=== PATIENT | male | born 1960 | race Caucasian/White ===

== ENCOUNTER 2020-04-06 09:51 | Inpatient (IN) ==
[2020-04-06 10:36] LABS: Basophils # 0.1 10*3/uL (0.0-0.2); Basophils % 0.5 % (0.0-0.8); Eosinophils % 0.4 % (0.00-10.9); Hemoglobin 13.8 GM/DL (14.0-18.0); Immature Granulocytes % 0.3 %; Immature Granulocytes Absolute 0.03 #; Lymphocytes # 1.5 10*3/uL (1.4-4.0); Lymphocytes % 14.6 % (21.2-54.2); Mean Corpuscular HGB Conc 32.9 GM/DL (32-36); Mean Corpuscular Volume 95.5 FL (87-102); Mean Platelet Volume 9.7 FL (9.6-12.0); Monocytes % 8.8 % (1.7-12.7); Neutrophils % 75.4 % (38.7-73.9); Platelet Count 315 T/CUMM (130-400); Red Cell Distribution Width 13.4 % (9.3-17.3)
[2020-04-06 11:04] LABS: Albumin 3.5 G/DL (3.4-5.0); Bilirubin,Total 0.5 MG/DL (0.2-1.0); Calcium 9.1 MG/DL (8.5-10.1); Total Protein 7.8 G/DL (6.4-8.3)
[2020-04-06 11:21] LABS: INR 4.3; Partial Thromboplastin Time 59.1 SECS (23.9-33.8)
[2020-04-06 11:23] LABS: PT Patient Result 42.3 SECS (9.8-11.9)
[2020-04-06 11:39] LABS: Macrocytosis Slight; Platelet Estimate Normal
[2020-04-06] MEDS ORDERED: ONDANSETRON 4 MG/2 ML VIAL IV PRN (14:35)
[2020-04-06] MEDS ORDERED: DEXTROSE 50% 25 GM/50 ML VIAL IV PRN (14:35)
[2020-04-06] MEDS ORDERED: GLUCAGON 1 MG VIAL IM PRN (14:35)
[2020-04-06] MEDS: NICOTINE 21 MG/24 HR PATCH TRANSDERM PRN (16:44)
[2020-04-06 23:17] LABS: Bilirubin,Urine Negative (Negative); Blood, Urine Moderate mg/dL (Negative); Glucose,Urine (UA) Negative (Negative); Ketones,Urine Negative (Negative); Mucus,Urine Occasional /LPF (Occasional); Nitrite,Urine Negative (Negative); Protein,Urine Negative; RBC,Urine 7 /HPF (0-4); Urine Appearance CLEAR (Clear); Urine Color Straw (Yellow); Urine Specific Gravity 1.018 (1.001-1.035); Urine Urobilinogen < 2.0 EU/DL (0.2-1.0); WBC,Urine 3 /HPF (0-6)
[2020-04-07 05:29] LABS: Basophils % 0.4 % (0.0-0.8); Eosinophils # 0.1 10*3/uL (0.0-0.87); Eosinophils % 0.7 % (0.00-10.9); Hematocrit 41.6 VOL% (42.0-52.0); Hemoglobin 13.3 GM/DL (14.0-18.0); Immature Granulocytes % 0.5 %; Immature Granulocytes Absolute 0.05 #; Lymphocytes # 1.4 10*3/uL (1.4-4.0); Mean Corpuscular Volume 96.5 FL (87-102); Mean Platelet Volume 10.1 FL (9.6-12.0); Neutrophils % 74.4 % (38.7-73.9); Platelet Count 298 T/CUMM (130-400); Red Blood Count 4.31 MC/CUMM (3.8-5.5); Red Cell Distribution Width 13.4 % (9.3-17.3); White Blood Count 9.4 T/CUMM (4-12)
[2020-04-07 05:51] LABS: INR 4.4; PT Patient Result 43.4 SECS (9.8-11.9)
[2020-04-07 05:55] LABS: Calcium 8.9 MG/DL (8.5-10.1)
[2020-04-07] MEDS: ACETAMINOPHEN 325 MG TABLET PO PRN (06:15)
[2020-04-07] MEDS: PANTOPRAZOLE 40 MG TABLET PO SCH (08:00)
[2020-04-07] MEDS ORDERED: SODIUM CHLORIDE 0.9% 1,000 ML IV PRN ×2 (09:31→13:08)
[2020-04-07] MEDS ORDERED: PHYTONADIONE 5 MG/5 ML ORAL.SYR PO ONE ×2 (09:32)
[2020-04-07] MEDS ORDERED: ALPRAZolam 0.25 MG TABLET PO ONE (09:46)
[2020-04-07 15:44] LABS: INR 2.8
[2020-04-07 15:47] LABS: PT Patient Result 28.8 SECS (9.8-11.9)
[2020-04-07] MEDS: HEPARIN DRIP 25,000 UNITS/500 ML PREMIX IV SCH (18:24)
[2020-04-07] MEDS: traZODone 50 MG TABLET PO PRN (22:13)
[2020-04-08] MEDS: ACETAMINOPHEN 325 MG TABLET PO PRN (01:35)
[2020-04-08 05:08] LABS: Basophils % 0.5 % (0.0-0.8); Eosinophils # 0.1 10*3/uL (0.0-0.87); Eosinophils % 1.1 % (0.00-10.9); Hematocrit 40.7 VOL% (42.0-52.0); Hemoglobin 13.3 GM/DL (14.0-18.0); Immature Granulocytes % 0.1 %; Immature Granulocytes Absolute 0.01 #; Lymphocytes # 1.4 10*3/uL (1.4-4.0); Lymphocytes % 17.7 % (21.2-54.2); Mean Corpuscular HGB Conc 32.7 GM/DL (32-36); Mean Corpuscular Volume 95.8 FL (87-102); Monocytes % 10.1 % (1.7-12.7); Neutrophils % 70.5 % (38.7-73.9); Platelet Count 291 T/CUMM (130-400); Red Blood Count 4.25 MC/CUMM (3.8-5.5); Red Cell Distribution Width 13.2 % (9.3-17.3); White Blood Count 7.8 T/CUMM (4-12)
[2020-04-08 05:24] LABS: Osmolality,Calculated 272.8 MOS/KG (273-304)
[2020-04-08 05:32] LABS: INR 1.3; PT Patient Result 14.2 SECS (9.8-11.9)
[2020-04-08 05:33] LABS: INR 1.4; PT Patient Result 14.6 SECS (9.8-11.9)
[2020-04-08] MEDS ORDERED: GLYCOPYRROLATE 0.4 MG/2 ML VIAL IM ONE (07:30)
[2020-04-08] MEDS ORDERED: PROMETHAZINE 25 MG/1 ML VIAL IM ONE (07:30)
[2020-04-08] MEDS ORDERED: MEPERIDINE 50 MG/1 ML VIAL IM ONE (07:30)
[2020-04-08] MEDS ORDERED: MIDAZOLAM 2 MG/2 ML VIAL IV ONE (08:00)
[2020-04-08] MEDS ORDERED: LIDOCAINE 2% VISCOUS 100 ML BOTTLE SWISH/SPIT ONE (08:00)
[2020-04-08] MEDS ORDERED: LIDOCAINE 2% 20 ML VIAL RESP TX ONE (08:00)
[2020-04-08] MEDS ORDERED: LIDOCAINE 1% 20 ML VIAL MISC INJ ONE (08:00)
[2020-04-08] MEDS: CLORAZEPATE 3.75 MG TABLET PO SCH ×2 (14:30→21:36)
[2020-04-08] MEDS: PANTOPRAZOLE 40 MG TABLET PO SCH (14:30)
[2020-04-08] MEDS: WARFARIN 5 MG TABLET PO SCH (17:56)
[2020-04-08] MEDS: HEPARIN DRIP 25,000 UNITS/500 ML PREMIX IV SCH (23:04)
[2020-04-09 06:48] LABS: Basophils # 0.1 10*3/uL (0.0-0.2); Basophils % 0.7 % (0.0-0.8); Eosinophils # 0.1 10*3/uL (0.0-0.87); Eosinophils % 1.1 % (0.00-10.9); Hematocrit 40.4 VOL% (42.0-52.0); Hemoglobin 13.1 GM/DL (14.0-18.0); Immature Granulocytes % 0.4 %; Immature Granulocytes Absolute 0.03 #; Lymphocytes # 1.3 10*3/uL (1.4-4.0); Lymphocytes % 15.2 % (21.2-54.2); Mean Corpuscular HGB Conc 32.4 GM/DL (32-36); Mean Corpuscular Volume 96.9 FL (87-102); Mean Platelet Volume 11.2 FL (9.6-12.0); Monocytes % 10.4 % (1.7-12.7); Neutrophils % 72.2 % (38.7-73.9); Red Blood Count 4.17 MC/CUMM (3.8-5.5); Red Cell Distribution Width 13.3 % (9.3-17.3); White Blood Count 8.5 T/CUMM (4-12)
[2020-04-09 06:55] LABS: Platelet Count 172 T/CUMM (130-400)
[2020-04-09 07:01] LABS: INR 1.2; PT Patient Result 12.4 SECS (9.8-11.9)
[2020-04-09 07:08] LABS: Platelet Estimate Adequate
[2020-04-09 07:11] LABS: Calcium 8.8 MG/DL (8.5-10.1); Osmolality,Calculated 276.7 MOS/KG (273-304)
[2020-04-09] MEDS ORDERED: WARFARIN 2.5 MG TABLET PO ONE (08:14)
[2020-04-09] MEDS: PANTOPRAZOLE 40 MG TABLET PO SCH (08:40)
[2020-04-09] MEDS: CLORAZEPATE 3.75 MG TABLET PO SCH ×3 (08:40→21:02)
[2020-04-09] MEDS: WARFARIN 5 MG TABLET PO SCH (18:22)
[2020-04-09] MEDS: NICOTINE 21 MG/24 HR PATCH TRANSDERM PRN (18:25)
[2020-04-09] MEDS: HEPARIN DRIP 25,000 UNITS/500 ML PREMIX IV SCH (19:37)
[2020-04-10] MEDS: ACETAMINOPHEN 325 MG TABLET PO PRN ×2 (04:30→20:48)
[2020-04-10 05:10] LABS: Basophils % 0.4 % (0.0-0.8); Eosinophils # 0.1 10*3/uL (0.0-0.87); Eosinophils % 1.4 % (0.00-10.9); Hematocrit 39.8 VOL% (42.0-52.0); Hemoglobin 12.7 GM/DL (14.0-18.0); Immature Granulocytes % 0.3 %; Immature Granulocytes Absolute 0.03 #; Lymphocytes # 1.2 10*3/uL (1.4-4.0); Lymphocytes % 11.5 % (21.2-54.2); Mean Corpuscular HGB Conc 31.9 GM/DL (32-36); Monocytes % 10.1 % (1.7-12.7); Neutrophils % 76.3 % (38.7-73.9); Platelet Count 243 T/CUMM (130-400); Red Blood Count 4.06 MC/CUMM (3.8-5.5); Red Cell Distribution Width 13.3 % (9.3-17.3); White Blood Count 10.1 T/CUMM (4-12)
[2020-04-10 05:17] LABS: INR 1.2; PT Patient Result 13.1 SECS (9.8-11.9)
[2020-04-10 05:48] LABS: Calcium 8.9 MG/DL (8.5-10.1)
[2020-04-10 06:26] LABS: Osmolality,Calculated 271.1 MOS/KG (273-304)
[2020-04-10] MEDS: CLORAZEPATE 3.75 MG TABLET PO SCH ×3 (09:13→20:38)
[2020-04-10] MEDS: PANTOPRAZOLE 40 MG TABLET PO SCH (09:13)
[2020-04-10] MEDS ORDERED: WARFARIN 5 MG TABLET PO ONE (12:00)
[2020-04-10] MEDS: WARFARIN 5 MG TABLET PO SCH (17:01)
[2020-04-10] MEDS: traZODone 50 MG TABLET PO PRN (20:38)
[2020-04-10] MEDS: HEPARIN DRIP 25,000 UNITS/500 ML PREMIX IV SCH (20:39)
[2020-04-11 06:10] LABS: INR 1.8; PT Patient Result 19.1 SECS (9.8-11.9)
[2020-04-11] MEDS: CLORAZEPATE 3.75 MG TABLET PO SCH (08:15)
[2020-04-11] MEDS: PANTOPRAZOLE 40 MG TABLET PO SCH (08:15)
[2020-04-11 12:03] VITALS: BP 113/60
== END 2020-04-11 14:27 | disposition home or self-care (01) | DRG 167 ==
LOC: N.ED 09:51 → SUATTDRO 14:35 → N.EDINP 14:35 → N.TELEN 15:40
PROVIDERS: ADMIT Internal Medicine; ATTEND Internal Medicine
PROC: BRONCHB (2020-04-08 08:05)